=== PATIENT | male | born 1960 | race Caucasian/White ===

== ENCOUNTER 2021-12-08 07:21 | Day surgery (SDC) | payer MEDICARE ==
[2021-12-08] MEDS ORDERED: PROPOFOL 40 ML ONE (09:46)
[2021-12-08] MEDS ORDERED: Lidocaine 1% PF 5 ML VIAL ONE (09:58)
[2021-12-08] MEDS ORDERED: Fentanyl 100 MCG/2 ML VIAL ONE (09:59)
== END 2021-12-08 10:46 | disposition home or self-care (01) ==
LOC: CSHSDC 07:21
PROVIDERS: ATTEND Internal Medicine Gastroenterology
PROC: 0DJD8ZZ Inspection of Lower Intestinal Tract, Via Natural or Artificial Opening Endoscopic (ICD-10-PCS; principal; 2021-12-08)
DX: Z12.11 Encounter for screening for malignant neoplasm of colon (principal); K57.30 Diverticulosis of large intestine without perforation or abscess without bleeding; K64.9 Unspecified hemorrhoids; E11.9 Type 2 diabetes mellitus without complications; I10 Essential (primary) hypertension; E66.9 Obesity, unspecified; Z87.891 Personal history of nicotine dependence; Z79.84 Long term (current) use of oral hypoglycemic drugs; Z79.899 Other long term (current) drug therapy
CPT/HCPCS: J2704; J3010